=== PATIENT | male | born 1975 | race Caucasian/White ===

== ENCOUNTER 2025-05-24 18:04 | Inpatient (IN) | payer OTHER ==
[~2025-05-24] VITALS: Ht 167.6 cm; Wt 128.0 kg
[2025-05-24 19:10] LABS: BASOPHILS % 0.3 % (0.0-2.0); EOSINOPHILS % 1.4 % (0.0-5.0); HEMATOCRIT. 37.0 % (42.0-52.0); HEMOGLOBIN. 12.8 g/dL (14.0-18.0); LYMPHOCYTES % 29.6 % (20.0-50.0); MEAN PLATELET VOLUME 9.1 fl (7.4-10.4); MONOCYTES % 7.4 % (2.0-8.0); NEUTROPHILS % 61.3 % (40.0-76.0); PLATELET 274 x1000/uL (130-400); RED BLOOD CELL COUNT 4.27 mill/uL (4.7-6.1); RED CELL DISTRIBUTION WIDTH 12.5 % (11.6-14.6)
[2025-05-24 19:18] LABS: CREATININE 0.9 mg/dL (0.6-1.3); UREA NITROGEN BLOOD 14 mg/dL (9-23)
[2025-05-24] MEDS: PIPERACILLIN/TAZO 3.375G/50ML 50 ML IV SCH (19:54)
[2025-05-24] MEDS: SODIUM CHLORIDE 0.9% (SEPSIS BOLUS) IV SCH (19:54)
[2025-05-24] MEDS: LOSARTAN 50 MG TABLET PO ONE (20:15)
[2025-05-24 20:30] LABS: INR 1.0
[2025-05-24 20:37] LABS: TROPONIN I HIGH SENSITIVITY < 4 ng/L (3.0-53)
[2025-05-24 20:53] LABS: LACTIC ACID 2.6 mmol/L (0.4-2.0)
[2025-05-24] MEDS: KETOROLAC 30MG/ML VIAL IV SCH (21:14)
[2025-05-24] MEDS: VANCOMYCIN 1G PREMIX 200 ML IV SCH (21:35)
[2025-05-24] MEDS: HYDRALAZINE 20MG/ML VIAL IV NR (22:06)
[2025-05-24 23:00] VITALS: BP 179/98; PULSE 80; RESP 16; TEMP 36.7; O2SAT 98
[2025-05-24] MEDS ORDERED: METF-1150 MT (23:10)
[2025-05-25] MEDS ORDERED: DEXTROSE 50% WATER 50ML SYRINGE IV PRN (00:45)
[2025-05-25] MEDS ORDERED: ACETAMINOPHEN 325MG TABLET PO PRN (00:45)
[2025-05-25] MEDS: LOSARTAN 50 MG TABLET PO SCH (01:17)
[2025-05-25] MEDS: HYDROCODONE/ACETAMINOPHEN 10/325MG TABLET PO PRN (01:17)
[2025-05-25] MEDS: AMLODIPINE 10MG TABLET PO SCH (01:18)
[2025-05-25 01:55] LABS: CLARITY URINE CLEAR (CLEAR); COLOR URINE YELLOW (YELLOW); GLUCOSE URINE 1+ (NEGATIVE); KETONES URINE TRACE (NEGATIVE); LEUKOCYTE ESTERASE URINE NEGATIVE (NEGATIVE); NITRITE URINE NEGATIVE (NEGATIVE); OCCULT BLOOD URINE NEGATIVE (NEGATIVE); PH URINE 6.0 (4.5-8.0); PROTEIN URINE NEGATIVE (NEGATIVE); SPECIFIC GRAVITY URINE 1.016 (1.005-1.030); UROBILINOGEN URINE 1.0 E.U./dL (0.2-1.0)
[2025-05-25] MEDS: PIPERACILLIN/TAZO 3.375G/50ML 50 ML IV SCH (02:22)
[2025-05-25 02:39] LABS: RBC URINE NONE SEEN /hpf (0-2); SQUAMOUS EPITHELIAL CELL URINE NONE SEEN /lpf (RARE/1+); WBC URINE 0-2 /hpf (0-2)
[2025-05-25 02:40] LABS: BACTERIA URINE NONE SEEN
[2025-05-25 04:00] VITALS: BP 163/93; PULSE 60; RESP 18; TEMP 36.4; O2SAT 100
[2025-05-25] MEDS: HYDRALAZINE 20MG/ML VIAL IV PRN (05:21)
[2025-05-25] MEDS: BLOOD SUGAR DIAGNOSTIC STRIP TEST SCH (07:34)
[2025-05-25 08:00] VITALS: BP 131/83; PULSE 73; RESP 18; TEMP 36.9; O2SAT 100
[2025-05-25] MEDS ORDERED: VANCOMYCIN 1.25GM/250ML 250 ML IV SCH (09:00)
[2025-05-25] MEDS: ENOXAPARIN 30MG/0.3ML SYR SUBCUT SCH (10:07)
[2025-05-25] MEDS: INSULIN GLARGINE 100 UNITS/ML SUBCUT SCH (10:10)
[2025-05-25] MEDS: INSULIN LISPRO 100 UNITS/ML SUBCUT SCH (10:10)
[2025-05-25] MEDS: VANCOMYCIN 1.5GM PMX (XELLIA) 300 ML IV SCH (11:21)
[2025-05-25 12:00] VITALS: BP 131/77; PULSE 65; RESP 18; TEMP 37
[2025-05-25 16:00] VITALS: BP 129/80; PULSE 62; RESP 16; TEMP 36.6; O2SAT 99
[2025-05-25 20:00] VITALS: BP 143/84; PULSE 104; RESP 18; TEMP 36.4; O2SAT 99
[2025-05-25] MEDS: ATORVASTATIN CALCIUM 40MG TABLET PO SCH (21:27)
[2025-05-26] VITALS: BP 147/81; PULSE 54; RESP 16; TEMP 36.2; O2SAT 99
[2025-05-26 04:00] VITALS: BP 135/86; PULSE 78; RESP 18; TEMP 36.3; O2SAT 98
[2025-05-26 07:54] LABS: CREATININE 0.7 mg/dL (0.6-1.3); UREA NITROGEN BLOOD 10 mg/dL (9-23)
[2025-05-26 08:00] VITALS: BP 141/86; PULSE 66; RESP 18; TEMP 36.1; O2SAT 100
[2025-05-26] MEDS ORDERED: SULF1TAB48 MT (10:13)
[2025-05-26] MEDS ORDERED: LOSA100T33 MT (10:13)
[2025-05-26] MEDS ORDERED: AMOX1TAB16 MT (10:13)
[2025-05-26 10:58] LABS: BASOPHILS % 0.5 % (0.0-2.0); EOSINOPHILS % 2.6 % (0.0-5.0); HEMATOCRIT. 42.5 % (42.0-52.0); HEMOGLOBIN. 14.1 g/dL (14.0-18.0); LYMPHOCYTES % 40.8 % (20.0-50.0); MEAN PLATELET VOLUME 9.7 fl (7.4-10.4); MONOCYTES % 5.9 % (2.0-8.0); NEUTROPHILS % 50.2 % (40.0-76.0); PLATELET 336 x1000/uL (130-400); RED BLOOD CELL COUNT 4.74 mill/uL (4.7-6.1); RED CELL DISTRIBUTION WIDTH 13.0 % (11.6-14.6)
[2025-05-26 12:00] VITALS: BP 150/83; PULSE 69; RESP 18; TEMP 36.3; O2SAT 100
[2025-05-26] MEDS: SILVER SULFADIAZINE 1% CREAM 50GM TOP SCH (13:12)
[2025-05-26 16:00] VITALS: BP 136/80; PULSE 66; RESP 18; TEMP 36.3; O2SAT 100
[2025-05-26 18:27] VITALS: BP 150/83; PULSE 69; TEMP 97.3; O2SAT 100
[2025-05-26] MEDS ORDERED: VANCOMYCIN 1.5GM/250ML 250 ML IV SCH (21:00)
== END 2025-05-26 19:13 | disposition home or self-care (01) | DRG 854 ==
LOC: ER 18:04 → EDBEDREQ 21:22 → EDBEDREQTM 21:22 → EDBEDREQSVC 21:22 → 7WST 22:52
PROVIDERS: ADMIT Internal Medicine; ATTEND Internal Medicine
PROC: 0JBQ0ZZ Excision of Right Foot Subcutaneous Tissue and Fascia, Open Approach (ICD-10-PCS; principal; 2025-05-25)
DX: A41.9 Sepsis, unspecified organism (principal); Z68.42 Body mass index [BMI] 45.0-49.9, adult; L03.031 Cellulitis of right toe; E11.621 Type 2 diabetes mellitus with foot ulcer; E11.40 Type 2 diabetes mellitus with diabetic neuropathy, unspecified; I10 Essential (primary) hypertension; L84 Corns and callosities; E66.9 Obesity, unspecified; L97.512 Non-pressure chronic ulcer of other part of right foot with fat layer exposed; Z55.6 Problems related to health literacy
CPT/HCPCS: 36415; 71045; 73660; 80048; 80202; 81003; 82962; 83036; 83605; 84145; 84484; 85025; 87070; 87077; 87186; 93005; 99291; J0360; J1650; J1815; J1885; J2543; J3370; J7060